=== PATIENT | male | born 1970 | race Two or more races ===

== ENCOUNTER 2019-11-09 23:04 | Inpatient (IN) | payer MEDICAID, MEDICARE, OTHER ==
--- NOTE | 2019-11-10 00:36 | ED ---
General Adult HPI - General Chief complaint: Psychiatric Symptoms Stated complaint: Mental Health Time Seen by Provider: 11/09/19 23:19 Source: patient Mode of arrival: wheelchair Limitations: no limitations - History of Present Illness Initial comments: 49-year-old male presents to the emergency department this evening for evaluation. Patient admits to drinking a substantial amount of alcohol throughout the day and was encouraged to come to the ER by his family members. Patient describes increased stress, including job loss, recent breakup, and c hange in living situation. Patient denies any thoughts of causing harm to himself or anyone else; denies suicidal plans and ideations. He does admit to feeling depressed and out of control of his life. Patient denies any recent rash, fever, chills, cough, shortness of breath, chest pain, abdominal pain, nausea, vomiting, diarrhea, constipation, back pain, numbness, tingling, dizziness, weakness, hematuria, dysuria, urinary urgency, urinary frequency, headache, visual changes, or any other complaints. - Related Data Home Medications Medication Instructions Recorded Confirmed Venlafaxine HCl ER [Effexor Xr] 150 mg PO DAILY 11/10/19 11/10/19 Allergies Allergy/AdvReac Type Severity Reaction Status Date / Time codeine Allergy Severe Vomiting Verified 11/10/19 13:10 peanut Allergy Severe Anaphylaxis Verified 11/10/19 13:10 Penicillins Allergy Severe Rash/Hives Verified 11/10/19 13:10 shellfish derived [Shellfish] Allergy Severe Anaphylaxis Verified 11/10/19 13:10 Review of Systems ROS Statement: Those systems with pertinent positive or pertinent negative responses have been documented in the HPI. ROS Other: All systems not noted in ROS Statement are negative. Past Medical History Past Medical History: No Reported History History of Any Multi-Drug Resistant Organisms: None Reported Past Surgical History: Hernia Repair Additional Past Surgical History / Comment(s): rt ankle Past Psychological History: PTSD Smoking Status: Never smoker Past Alcohol Use History: Daily Past Drug Use History: None Reported General Exam Limitations: no limitations (This is a well-developed, well-nourished male who presents to the emergency department in no acute distress. Initial vital signs include temperature 98.0F, pulse 77, respirations 16, blood pressure 148/90, pulse ox 99% on room air) General appearance: alert, in no apparent distress Respiratory exam: Present: normal lung sounds bilaterally. Absent: respiratory distress, wheezes, rales, rhonchi, stridor Cardiovascular Exam: Present: regular rate, normal rhythm, normal heart sounds. Absent: systolic murmur, diastolic murmur, rubs, gallop, clicks GI/Abdominal exam: Present: soft, normal bowel sounds. Absent: distended, tenderness, guarding, rebound, rigid Neurological exam: Present: alert, oriented X3, CN II-XII intact Psychiatric exam: Present: depressed, flat affect, other (Reports EtOH intake. Denies suicidal ideations.) Skin exam: Present: warm, dry, intact, normal color. Absent: rash Course Vital Signs 11/09/19 11/10/19 11/10/19 23:10 06:00 11:42 Temperature 98.0 F 98.0 F 97.8 F Pulse Rate 77 89 74 Respiratory 16 16 18 Rate Blood Pressure 148/90 114/64 128/71 O2 Sat by Pulse 99 97 95 Oximetry Medical Decision Making - Medical Decision Making 49-year-old male presents to the emergency department for evaluation. Patient reports multiple uncertainties in his life including job loss, recent traumatic breakup, and change in living situation. Patient vehemently denies suicidal ideation or plan, but describes feeling overwhelmed. Patient does endorse EtOH use throughout the day and was found to have a BAT of 0.222; urine drug screen negative. Patient has been medically cleared for EPS evaluation when sober at 0800. Patient care is handed off to my attending Dr. Knight. - Lab Data Lab Results 11/09/19 Range/Units 01:04 Urine Opiates Screen Not Detected (NotDetected) Ur Oxycodone Screen Not Detected (NotDetected) Urine Methadone Screen Not Detected (NotDetected) Ur Propoxyphene Screen Not Detected (NotDetected) Ur Barbiturates Screen Not Detected (NotDetected) U Tricyclic Antidepress Not Detected (NotDetected) Ur Phencyclidine Scrn Not Detected (NotDetected) Ur Amphetamines Screen Not Detected (NotDetected) U Methamphetamines Scrn Not Detected (NotDetected) U Benzodiazepines Scrn Not Detected (NotDetected) Urine Cocaine Screen Not Detected (NotDetected) U Marijuana (THC) Screen Not Detected (NotDetected) Disposition Clinical Impression: Depression Disposition: TRANSFER TO PSYCH HOSP/UNIT Condition: Serious - Out of Hospital Transfer - Req. Specs Out of Hospital Transfer - Requested Specifics: Psychiatric Non-ICU ([facility] mental health unit)
[2019-11-10 01:17] LABS: Amphetamine Screen,Urine Not Detected (NotDetected); Barbiturate Screen,Urine Not Detected (NotDetected); Benzodiazepines Screen,Urine Not Detected (NotDetected); Cocaine Screen,Urine Not Detected (NotDetected); Methadone Screen, Urine Not Detected (NotDetected); Opiate Screen,Urine Not Detected (NotDetected); Oxycodone Screen, Urine Not Detected (NotDetected); Phencyclidine Screen,Urine Not Detected (NotDetected); Tricyclic Antidepressant,Urine Not Detected (NotDetected); Urn Cannabinoid Scrn Not Detected (NotDetected)
[2019-11-10] MEDS ORDERED: ACETAMINOPHEN TAB 325 MG TAB PO PRN (11:48)
[2019-11-10] MEDS ORDERED: MAGNESIUM HYDROXIDE 2,400 MG/10 ML CUP PO PRN (11:48)
[2019-11-10] MEDS ORDERED: MAG HYDROX/AL HYDROX/SIMETH 30 ML CUP PO PRN (11:48)
[2019-11-10] MEDS ORDERED: LORazepam 1 MG TAB PO PRN (11:48)
[2019-11-10] MEDS ORDERED: ZIPRASIDONE 20 MG VIAL IM PRN (11:48)
[2019-11-10] MEDS: THIAMINE 100 MG TAB PO SCH (13:08)
[2019-11-10] MEDS: VENLAFAXINE HCL ER 75 MG CAP PO SCH (13:08)
[2019-11-10] MEDS: FOLIC ACID 1 MG TAB PO SCH (13:08)
--- NOTE | 2019-11-10 23:33 | P.MDCNMH ---
History of Present Illness H&P Date: 11/10/19 Chief Complaint: depression 49 year old male with history of GERD, depression, anxiety, PTSD patient comes in due to depression and swinging mood between feeling down and excited. he denies hearing voices or visual hallucination, denies suicidal ideation at this time he otherwise denies any medical concerns at this time, except for long history of GERD , and alcohol abuse. he admits to history of polysubstance abuse, but currently on marijuana and tobacco smoking he denies any fever, chills, chest pain , nausea vomiting, GI bleeding, or trouble breathing Review of Systems Pertinent positives as noted in HPI. All other systems were reviewed and are negative Past Medical History Past Medical History: GERD/Reflux History of Any Multi-Drug Resistant Organisms: None Reported Past Surgical History: Hernia Repair Additional Past Surgical History / Comment(s): rt ankle Past Psychological History: PTSD Smoking Status: Never smoker Past Alcohol Use History: Daily Past Drug Use History: None Reported - Past Family History family Family Medical History: No Reported History Medications and Allergies Home Medications Medication Instructions Recorded Confirmed Type Venlafaxine HCl ER [Effexor Xr] 150 mg PO DAILY 11/10/19 11/10/19 History Allergies Allergy/AdvReac Type Severity Reaction Status Date / Time codeine Allergy Severe Vomiting Verified 11/10/19 13:10 peanut Allergy Severe Anaphylaxis Verified 11/10/19 13:10 Penicillins Allergy Severe Rash/Hives Verified 11/10/19 13:10 shellfish derived [Shellfish] Allergy Severe Anaphylaxis Verified 11/10/19 13:10 Physical Exam Vitals: Vital Signs Temp Pulse Pulse Resp BP BP Pulse Ox 11/10/19 14:15 97.2 F L 89 16 138/88 11/10/19 11:42 97.8 F 74 18 128/71 95 11/10/19 06:00 98.0 F 89 16 114/64 97 11/09/19 23:10 98.0 F 77 16 148/90 99 Intake and Output 11/10/19 11/10/19 11/10/19 06:59 14:59 22:59 Other: Weight 77.111 kg 76.793 kg Constitutional: No acute distress, conversant, pleasant Eyes: Anicteric sclerae, moist conjunctiva, Pupils equal round reactive to light ENMT: NC/AT Oropharynx clear, no erythema, or exudates Neck: Supple, FROM, no masses, or JVD No carotid bruits No thyromegaly Lungs: Clear to auscultation Clear to percussion Normal respiratory effort, no accessory muscle use Cardiovascular: Heart regular in rate and rhythm, No murmurs, gallops, or rubs No peripheral edema Abdominal: Soft Nontender, no guarding, rebound or rigidity Abdomen moving with respiration Normoactive bowel sounds No hepatomegaly, No splenomegaly No palpable mass No abdominal wall hernia noted Skin: Normal temperature, tone, texture, turgor No induration No subcutaneous nodules No rash, lesions No ulcers Extremities: No digital cyanosis No clubbing Pedal pulses intact and symmetrical Radial pulses intact and symmetrical No calf tenderness Psychiatric: Alert and oriented to person, place and time manic affect pressured speech Neuro Muscles Strength 5/5 in all 4 extremities Sensation to light touch grossly present throughout Cranial nerves II-XII grossly intact No focal sensory deficits Lymphatics: no palpable cervical or supraclavicular , or inguinal lymph nodes Cranial Nerve Examination - Cranial Nerves Cranial Nerve II- Optic: Intact Cranial Nerve III- Oculomotor: Intact Cranial Nerve IV- Trochlear: Intact Cranial Nerve V- Trigeminal: Intact Cranial Nerve - Abducens: Intact Cranial Nerve VII- Facial: Intact Cranial Nerve VIII- Auditory: Intact Cranial Nerve IX- Glossopharyngeal: Intact Cranial Nerve X- Vagus: Intact Cranial Nerve XI- Accessory: Intact Cranial Nerve XII- Hypoglossal: Intact Assessment and Plan Assessment: depression, anxiety management per psych GERD PPI bid polysubstance abuse monitor for alcohol withdrawal nicotine patch Thank you for allowing us to participate in the care of this patient. We will follow peripherally. Do not hesitate to contact us with questions. Someone can be reached from the [facility] hospitalist group at all hours of the day at [phone].
[2019-11-11] MEDS: PANTOPRAZOLE 40 MG TABLET PO SCH ×3 (04:31→16:36)
[2019-11-11] MEDS: NICOTINE 14MG/24HR PATCH TRANSDERM SCH ×2 (04:31→08:41)
[2019-11-11] MEDS: THIAMINE 100 MG TAB PO SCH (08:42)
[2019-11-11] MEDS: FOLIC ACID 1 MG TAB PO SCH (08:42)
[2019-11-11] MEDS: VENLAFAXINE HCL ER 75 MG CAP PO SCH (08:42)
[2019-11-11] MEDS ORDERED: VENLAFAXINE HCL ER 75 MG CAP PO STA (10:31)
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
[2019-11-11 13:09] LABS: Basophils # (A) 0.1 k/uL (0-0.2); Basophils % (A) 1 %; Eosinophils # (A) 0.1 k/uL (0-0.7); Eosinophils % (A) 2 %; HCT 51.6 % (39.0-53.0); HGB 16.6 gm/dL (13.0-17.5); Lymphocytes # (A) 0.9 k/uL (1.0-4.8); Lymphocytes % (A) 13 %; MCH 30.1 pg (25.0-35.0); MCHC 32.2 g/dL (31.0-37.0); MCV 93.5 fL (80.0-100.0); Mean Platelet Volume 7.4; Monocytes # (A) 0.3 k/uL (0-1.0); Monocytes % (A) 5 %; Neutrophils # (A) 5.1 k/uL (1.3-7.7); Neutrophils % (A) 77 %; Platelet Count 233 k/uL (150-450); RBC 5.52 m/uL (4.30-5.90); RDW 12.6 % (11.5-15.5); WBC 6.6 k/uL (3.8-10.6)
[2019-11-11 13:32] LABS: ALT 30 U/L (4-49); AST 41 U/L (17-59); African American GFR (CKD) >90 (>60 ml/min/1.73 sqM); Albumin 4.8 g/dL (3.5-5.0); Alkaline Phosphatase 89 U/L (38-126); Anion Gap 6 mmol/L; Blood Urea Nitrogen 23 mg/dL (9-20); Calcium 9.7 mg/dL (8.4-10.2); Carbon Dioxide 34 mmol/L (22-30); Chloride 98 mmol/L (98-107); Glucose 119 mg/dL (74-99); Non-African American GFR(CKD) 87 (>60 ml/min/1.73 sqM); Potassium 4.4 mmol/L (3.5-5.1); Sodium 138 mmol/L (137-145); Total Bilirubin 1.3 mg/dL (0.2-1.3); Total Protein 7.4 g/dL (6.3-8.2)
[2019-11-11 19:47] LABS: Hemoglobin A1C 5.5 % (4.0-6.0)
[2019-11-12] MEDS: PANTOPRAZOLE 40 MG TABLET PO SCH ×2 (08:51→16:46)
[2019-11-12] MEDS: FOLIC ACID 1 MG TAB PO SCH (08:53)
[2019-11-12] MEDS: ARIPiprazole 5 MG TAB PO SCH (08:53)
[2019-11-12] MEDS: VENLAFAXINE HCL ER 150 MG CAP PO SCH (08:53)
[2019-11-12] MEDS: THIAMINE 100 MG TAB PO SCH (08:54)
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
[2019-11-13] MEDS: PANTOPRAZOLE 40 MG TABLET PO SCH ×2 (08:07→16:47)
[2019-11-13] MEDS: ARIPiprazole 5 MG TAB PO SCH (08:08)
[2019-11-13] MEDS: THIAMINE 100 MG TAB PO SCH (08:09)
[2019-11-13] MEDS: VENLAFAXINE HCL ER 150 MG CAP PO SCH (08:09)
[2019-11-13] MEDS: FOLIC ACID 1 MG TAB PO SCH (08:09)
--- NOTE | 2019-11-13 14:18 | P.PN ---
Progress Note - Text Progress Note Date: 11/13/19 Subjective: Patient was seen today as a cross coverage for Dr. Joshi. The patient was evaluated, chart reviewed, case discussed with the treatment team. Patient continues to report stability of his emotions and psychiatric symptoms. He denies any depression, feeling hopeless, or suicidal. Denies any anxiety, mood swings, irritability, or homicidal ideation. Denies any manic or psychotic symptoms. Patient continues to have good sleep, and fair appetite. He attends groups and other unit activities, and continues to take his psychiatric medications with no side effects reported. Objective: Vitals has been reviewed. Mental status examination; Appearance: The patient appears stated age, adequately groomed and dressed, no specific features. Gait/posture: Normal gait, Normal arm swinging: No abnormal movements. Attitude and behavior: engaged, cooperative, fair eye contact. Motor activity: Normal psychomotor activity Speech: Normal rate, tone. Mood: "Fine" Affect: Constricted Thought form: goal-directed, linear, coherent. Thought content: Non-delusional, denies suicidal thoughts, denies homicidal thoughts, denies intentions or plans. Perception: Denies any auditory or visual hallucinations Attention: No impairment. Orientation: Patient patient was fully oriented to time place person and situation. Insight: Patient has fair insight about his psychiatric disorder. Judgment: Patient has fair judgment about his psychiatric treatment. Assessment: Major depressive disorder. Generalized anxiety disorder. Alcohol use disorder. Posttraumatic stress disorder Plan: Continue inpatient level of care due to for further stabilization Precautions: Continue 15 minutes check for safety. Consider medical consultation if any acute medical issues arise. Provide the patient individual, group therapy, substance use disorder counseling to give better insight and learn coping skills. Medications: Effexor XR 225 mg daily for depression and anxiety. Abilify 2.5 mg daily for mood stabilization and augment antidepressant. Continue vitamin supplements, folate and thiamine. Continue monitoring for alcohol withdrawal. Continue as needed medications for psychiatric emergencies including psychosis, agitation and anxiety. Continue non-psychiatric medications for medical conditions as recommended by the medical team. Discharge patient to OUTPATIENT services upon a stabilization
[2019-11-14] MEDS: THIAMINE 100 MG TAB PO SCH (09:02)
[2019-11-14] MEDS: VENLAFAXINE HCL ER 150 MG CAP PO SCH (09:02)
[2019-11-14] MEDS: FOLIC ACID 1 MG TAB PO SCH (09:02)
[2019-11-14] MEDS: PANTOPRAZOLE 40 MG TABLET PO SCH ×2 (09:02→18:38)
[2019-11-14] MEDS: ARIPiprazole 5 MG TAB PO SCH ×2 (09:03→09:48)
--- NOTE | 2019-11-14 09:58 | P.PN ---
Progress Note - Text Progress Note Date: 11/14/19 Interval History: Patient was seen wandering the hallways and was directable and agreeable to speak with policy writer typist in the office. Patient reports that he is feeling "better." When confronted with the information provided by the patient's sister, he does acknowledge that he has had some irritability and homicidal ideation which he attributes to an intoxicated state when under the influence of alcohol. Patient was less forthcoming with this information during the initial psychiatric evaluation. Patient's sister expressed concern that the patient was homicidal and has been stalking his ex-fianc's family and her. He expresses a strong desire to treat his alcohol use through counseling services in the outpatient setting. Patient stresses and understanding that safe discharge planning will include removal of firearms. He reports no issues with sleep or appetite. At this time patient denies any suicidal or homicidal ideations, intent or plan. Patient denies any auditory, visual hallucinations and denies any paranoia or delusions. Patient denies any side effects from the medications and has been compliant with meds. Mental Status Exam: General Appearance: Patient appears to be stated age is alert, directable, and cooperative. Behavior: Patient is calmly seated without any agitated behavior. Speech: Patient's speech is fluent and nonpressured. Mood/Affect: Mood is improving mildly, affect is congruent and constricted. Suicidality/Homicidality: Patient denies having any suicidal or homicidal ideation intent or plan. Perceptions: Patient denies any visual hallucinations and denies any auditory hallucinations Though content/process: There is no evidence of any delusional thought content and thought process is linear and goal-directed. Memory and concentration: AOX3, grossly intact for the purposes of this session Judgment and insight: Improving mildly Assessment Due to depressive disorder Generalized anxiety disorder Alcohol use disorder Post traumatic chest disorder Plan: -Patient continues to meet criteria for inpatient psychiatric admission for symptom stabilization and safety. Patient has signed adult voluntary form and medication consent and was placed in patient's chart. -Medications: Continue Effexor XR 25 mg by mouth daily for depression and anxiety. Increase Abilify to 5 mg by mouth daily for mood stabilization and augment antidepressant. Continue vitamin supplements, folate and thiamine. Continue monitoring for alcohol withdrawal. We will have a team meeting today to discuss safety and appropriate discharge planning. -When necessary Ativan and Geodon for agitation/aggression. -SW on board for discharge planning. Encouraged the patient to participate in milieu.
[2019-11-14] MEDS: NICOTINE POLACRILEX 2 MG GUM BUCCAL PRN ×3 (15:10→23:10)
[2019-11-15] MEDS: PANTOPRAZOLE 40 MG TABLET PO SCH ×2 (07:45→16:42)
[2019-11-15] MEDS: NICOTINE POLACRILEX 2 MG GUM BUCCAL PRN ×4 (07:46→21:37)
[2019-11-15] MEDS ORDERED: ARIPiprazole 5 MG TAB PO SCH (09:00)
[2019-11-15] MEDS: FOLIC ACID 1 MG TAB PO SCH (09:36)
[2019-11-15] MEDS: VENLAFAXINE HCL ER 150 MG CAP PO SCH (09:36)
[2019-11-15] MEDS: THIAMINE 100 MG TAB PO SCH (09:36)
--- NOTE | 2019-11-15 09:56 | P.PN ---
Progress Note - Text Progress Note Date: 11/15/19 Interval History: Patient was seen wandering the hallways and was directable and agreeable to speak with bid writer in the office. Patient reports that he feels better after the conversation with his family yesterday. He continues to endorse low mood but states that he is slowly getting better. He expresses remorse for his actions and understands that he is facing some criminal charges. At this time patient denies any suicidal or homical ideations, intent or plan. Patient denies any auditory, visual hallucinations and denies any paranoia or delusions. Patient denies any side effects from the medications and has been compliant with meds. He is open to starting naltrexone today to address his alcohol use. He reports that he has qualified to go to [facility] for alcohol use rehabilitation upon discharge. Mental Status Exam: General Appearance: Patient appears to be stated age is alert, directable, and cooperative. Behavior: Patient is calmly seated without any agitated behavior. Speech: Patient's speech is fluent and nonpressured. Mood/Affect: Mood is improving mildly, affect is congruent and constricted. Suicidality/Homicidality: Patient denies having any suicidal or homicidal ideation intent or plan. Perceptions: Patient denies any visual hallucinations and denies any auditory hallucinations Though content/process: There is no evidence of any delusional thought content and thought process is linear and goal-directed. Memory and concentration: AOX3, grossly intact for the purposes of this session Judgment and insight: Improving mildly Assessment Major depressive disorder Generalized anxiety disorder Alcohol use disorder Posttraumatic stress disorder Plan: -Patient continues to meet criteria for inpatient psychiatric admission for symptom stabilization and safety. Patient has signed adult voluntary form and medication consent and was placed in patient's chart. -Medications: Continue Effexor XR 150 mg by mouth daily for depression and anxiety Increase Abilify to 10 mg by mouth daily for mood stabilization and augment antidepressant Start naltrexone 50 mg by mouth daily for alcohol use disorder Continue vitamin supplements, folate, and thiamine Continue monitoring for alcohol withdrawal -Discussed with sister yesterday during family meeting about the removal of firearms and safe discharge planning. -When necessary Ativan and Geodon for agitation/aggression. -NRT -Nicorette gum -SW on board for discharge planning. Encouraged the patient to participate in milieu.
[2019-11-15] MEDS: NALTREXONE HCL 50 MG TAB PO SCH (11:08)
[2019-11-16] MEDS: PANTOPRAZOLE 40 MG TABLET PO SCH ×2 (08:54→17:52)
[2019-11-16] MEDS: NALTREXONE HCL 50 MG TAB PO SCH (08:55)
[2019-11-16] MEDS: FOLIC ACID 1 MG TAB PO SCH (08:55)
[2019-11-16] MEDS: ARIPiprazole 10 MG TAB PO SCH (08:55)
[2019-11-16] MEDS: VENLAFAXINE HCL ER 150 MG CAP PO SCH (08:55)
[2019-11-16] MEDS: THIAMINE 100 MG TAB PO SCH (08:55)
[2019-11-16] MEDS: NICOTINE POLACRILEX 2 MG GUM BUCCAL PRN ×4 (08:56→22:34)
--- NOTE | 2019-11-16 10:23 | P.PN ---
Progress Note - Text Progress Note Date: 11/16/19 Interval History: Patient was seen in his bedroom and was directable and agreeable to speak with parts data writer in the office. Patient reports that he has found group to be very beneficial. He reports that he has been more honest with himself and has been able to express more emotion. He states that he has stopped his family yesterday and the firearms have been removed from his reach. At this time patient denies any suicidal or homicidal ideations, intent or plan. Patient david es any auditory, visual hallucinations and denies any paranoia or delusions. Patient denies any side effects from the medications and has been compliant with meds. He stresses that he is eager to go to [facility] and reports that they have a spot for him on Thursday. Mental Status Exam: General Appearance: Patient appears to be stated age is alert, directable, and cooperative. Behavior: Patient is calmly seated without any agitated behavior. Speech: Patient's speech is fluent and nonpressured. Mood/Affect: Mood is improving mildly, affect is congruent and constricted. Suicidality/Homicidality: Patient denies having any suicidal or homicidal ideation intent or plan. Perceptions: Patient denies any visual hallucinations and denies any auditory hallucinations Though content/process: There is no evidence of any delusional thought content and thought process is linear and goal-directed. Memory and concentration: AOX3, grossly intact for the purposes of this session Judgment and insight: Improving mildly Assessment Major depressive disorder Posttraumatic stress disorder Generalized anxiety disorder Alcohol use disorder Tobacco use disorder Plan: -Patient continues to meet criteria for inpatient psychiatric admission for symptom stabilization and safety. Patient has signed adult voluntary form and medication consent and was placed in patient's chart. -Medications: Continue Effexor XR 150 mg by mouth daily for depression and anxiety Continue Abilify 10 mg by mouth daily for mood stabilization and augmentation of his antidepressant Continue naltrexone 50 mg by mouth daily for alcohol use disorder Continue vitamin supplements, folate, and thiamine Continue monitoring for alcohol withdrawal -Will confirm with family prior to discharge about removing access to firearms for this patient. -When necessary Ativan and Geodon for agitation/aggression. -NRT -Nicorette gum -SW on board for discharge planning. Encouraged the patient to participate in milieu.
[2019-11-16] MEDS: AZITHROMYCIN 500 MG TAB PO SCH (18:12)
[2019-11-17] MEDS: PANTOPRAZOLE 40 MG TABLET PO SCH ×2 (07:58→16:36)
[2019-11-17] MEDS: FOLIC ACID 1 MG TAB PO SCH (08:41)
[2019-11-17] MEDS: VENLAFAXINE HCL ER 150 MG CAP PO SCH (08:41)
[2019-11-17] MEDS: AZITHROMYCIN 500 MG TAB PO SCH (08:41)
[2019-11-17] MEDS: ARIPiprazole 10 MG TAB PO SCH (08:41)
[2019-11-17] MEDS: THIAMINE 100 MG TAB PO SCH (08:41)
[2019-11-17] MEDS: NALTREXONE HCL 50 MG TAB PO SCH (08:41)
[2019-11-17] MEDS: NICOTINE POLACRILEX 2 MG GUM BUCCAL PRN ×3 (08:43→18:27)
--- NOTE | 2019-11-17 08:54 | P.PN ---
Progress Note - Text Progress Note Date: 11/17/19 Interval History: Patient was seen wandering the hallways and was directable and agreeable to speak with music writer in the office. Patient reports that he is doing well. He states that sleep was somewhat difficult last night due to a new patient being introduced to the unit in the middle of the night. In regards to mood, patient is not endorsing any significant symptoms of depression, anxiety, or bipolar disorder at this time. At this time patient denies any suicidal or homical ideations, intent or plan. He is future oriented, and is looking forward to starting rehab at [facility]. Patient denies any auditory, visual hallucinations and denies any paranoia or delusions. Patient denies any side effects from the medications and has been compliant with meds. Mental Status Exam: General Appearance: Patient appears to be stated age is alert, directable, and cooperative. Behavior: Patient is calmly seated without any agitated behavior. Speech: Patient's speech is fluent and nonpressured. Mood/Affect: Mood is improving mildly, affect is congruent and constricted. Suicidality/Homicidality: Patient denies having any suicidal or homicidal ideation intent or plan. Perceptions: Patient denies any visual hallucinations and denies any auditory hallucinations Though content/process: There is no evidence of any delusional thought content and thought process is linear and goal-directed. Memory and concentration: AOX3, grossly intact for the purposes of this session Judgment and insight: Improving mildly Assessment Major depressive disorder Posttraumatic stress disorder Generalized anxiety disorder Alcohol use disorder Plan: -Patient continues to meet criteria for inpatient psychiatric admission for symptom stabilization and safety. Patient has signed adult voluntary form and medication consent and was placed in patient's chart. -Medications: Continue Effexor XR 150 mg by mouth daily for depression and anxiety Continue Abilify 10 mg by mouth daily for mood stabilization/augmentation of antidepressants Continue naltrexone 50 mg by mouth daily for alcohol use disorder Continue monitoring for alcohol withdrawal Continue vitamin supplements, folate, and thiamine -Anticipate patient discharged tomorrow to [facility]. -When necessary Ativan and Geodon for agitation/aggression. -NRT - Nicorette gum -SW on board for discharge planning. Encouraged the patient to participate in milieu.
[2019-11-17 14:00] VITALS: TEMP 98.8
[2019-11-17 15:54] VITALS: BMI 25.9
[2019-11-18] MEDS: PANTOPRAZOLE 40 MG TABLET PO SCH (08:54)
[2019-11-18] MEDS: ARIPiprazole 10 MG TAB PO SCH (08:55)
[2019-11-18] MEDS: NALTREXONE HCL 50 MG TAB PO SCH (08:56)
[2019-11-18] MEDS: VENLAFAXINE HCL ER 150 MG CAP PO SCH (08:56)
[2019-11-18] MEDS: FOLIC ACID 1 MG TAB PO SCH (08:56)
[2019-11-18] MEDS: AZITHROMYCIN 500 MG TAB PO SCH (08:56)
[2019-11-18] MEDS: THIAMINE 100 MG TAB PO SCH (08:56)
[2019-11-18] MEDS: NICOTINE POLACRILEX 2 MG GUM BUCCAL PRN (08:56)
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
[2019-11-18 10:48] VITALS: BP 117/72; PULSE 82; RESP 20
== END 2019-11-18 09:38 | disposition home or self-care (01) | DRG 881 ==
LOC: EC 23:04 → 3MHU 11-10 10:51
PROVIDERS: ADMIT Psychiatry & Neurology Psychiatry; ATTEND Psychiatry & Neurology Psychiatry
DX: F32.9 Major depressive disorder, single episode, unspecified (principal); R45.851 Suicidal ideations; R45.850 Homicidal ideations; F10.10 Alcohol abuse, uncomplicated; F41.1 Generalized anxiety disorder; F43.10 Post-traumatic stress disorder, unspecified; G47.33 Obstructive sleep apnea (adult) (pediatric); K21.9 Gastro-esophageal reflux disease without esophagitis; R45.87 Impulsiveness; Z72.0 Tobacco use; Z79.899 Other long term (current) drug therapy; Z88.5 Allergy status to narcotic agent; Z91.010 Allergy to peanuts; Z88.0 Allergy status to penicillin; Z91.013 Allergy to seafood; Z98.890 Other specified postprocedural states; Z87.19 Personal history of other diseases of the digestive system; Z56.0 Unemployment, unspecified
CPT/HCPCS: 80053; 80306; 82075; 83036; 84443; 85025; 99284

== ENCOUNTER → 2020-07-05 | Outpatient (CLI) | payer OTHER ==
[2020-07-05 19:17] LABS: Basophils # (A) 0.03 X 10*3/uL (0.00-0.10); Basophils % (A) 0.9 %; Eosinophils % (A) 2.9 %; HCT 49.1 % (39.6-50.0); HGB 16.1 g/dL (13.0-17.0); Lymphocytes # (A) 0.96 X 10*3/uL (0.90-5.00); Lymphocytes % (A) 28.2 %; MCH 29.7 pg (27.0-32.0); MCHC 32.8 g/dL (32.0-37.0); MCV 90.6 fL (80.0-97.0); Monocytes # (A) 0.47 X 10*3/uL (0.20-1.00); Monocytes % (A) 13.8 %; Neutrophils # (A) 1.84 X 10*3/uL (1.80-7.70); Neutrophils % (A) 54.2 %; Platelet Count 189 X 10*3/uL (140-440); RBC 5.42 X 10*6/uL (4.40-5.60); RDW 11.8 % (11.5-14.5)
[2020-07-05 21:32] LABS: African American GFR (CKD) 80.1 (60.0-200.0); Albumin 4.7 g/dL (3.80-4.90); Albumin/Globulin Ratio 2.24 (1.60-3.17); Anion Gap 10.5 mmol/L (4.00-12.00); BUN/Creat Ratio 11.67 Ratio (12.00-20.00); Calcium 9.2 mg/dL (8.7-10.3); Carbon Dioxide 28.5 mmol/L (21.6-31.8); Chol/HDL Ratio 4.87; Globulin 2.1 g/dL (1.6-3.3); Non-African American GFR(CKD) 69.1 (60.0-200.0); Potassium 4.3 mmol/L (3.5-5.5); Prolactin 1.4 ng/mL (2.1-17.7); T4, Free (Free Thyroxine) 0.7 ng/dL (0.80-1.80); Total Bilirubin 0.6 mg/dL (0.3-1.2); Total Protein 6.8 g/dL (6.2-8.2)
== END | disposition home or self-care (01) ==
LOC: LABWHC1 11:29
PROVIDERS: ATTEND Psychiatry & Neurology Psychiatry
DX: Z79.899 Other long term (current) drug therapy (principal)
CPT/HCPCS: 36415; 80053; 80061; 82306; 83036; 84146; 84439; 84443; 85025